=== PATIENT | female | born 1985 | race African-American/Black ===

== ENCOUNTER 2016-11-17 21:44 | Emergency (ER) | payer MEDICAID ==
[2016-11-17 21:54] VITALS: BP 104/71
[2016-11-17] MEDS ORDERED: IBUPROFEN 800 MG TABLET PO ONE (21:55)
--- NOTE | 2016-11-17 21:57 | ER Document Report ---
ED Medical Screen (RME) - General Stated Complaint: HAND INJURY Notes: Patient burned palm of right hand tonight on burner she was checking to see if it was hot. I have greeted and performed a rapid initial assessment of this patient. A comprehensive ED assessment and evaluation of the patient, analysis of test results and completion of the medical decision making process will be conducted by additional ED providers. TRAVEL OUTSIDE OF THE [place] IN LAST 30 DAYS: No - Related Data Allergies/Adverse Reactions: No Known Allergies Allergy (Unverified 02/15/16 11:22) Past Medical History - Past Medical History Cardiac Medical History: Reports: Hx Heart Murmur Psychiatric Medical History: Reports: Hx Depression Past Surgical History: Reports: Hx Section - 3, Hx Oral Surgery - Immunizations Immunizations up to date: No Hx Diphtheria, Pertussis, Tetanus Vaccination: No Physical Exam - Skin Notes: Mild erythema to Palm, no blisters noted.
== END 2016-11-17 22:44 | disposition left against medical advice (07) ==
LOC: ER 21:44
DX: Z53.9 Procedure and treatment not carried out, unspecified reason (principal); S69.91XA Unspecified injury of right wrist, hand and finger(s), initial encounter; X58.XXXA Exposure to other specified factors, initial encounter
CPT/HCPCS: 99281; J3490

== ENCOUNTER 2017-01-04 20:24 | Emergency (ER) | payer MEDICAID ==
[2017-01-04] MEDS ORDERED: DIPHENHYDRAMINE HCL 50 MG/ML VIAL IM ONE (22:17)
[2017-01-04] MEDS ORDERED: KETOROLAC TROMETHAMINE 60 MG/2 ML SDV IM ONE (22:17)
[2017-01-04] MEDS ORDERED: METOCLOPRAMIDE HCL INJ/PF 10 MG/2 ML SDV IM ONE (22:17)
--- NOTE | 2017-01-04 22:57 | ER Document Report ---
ED Headache - General Chief Complaint: Headache <24 hrs old Stated Complaint: HEADACHE Time Seen by Provider: 01/04/17 22:13 Notes: The patient is a 31-year-old female, past medical history migraines, presents with her usual headache that is frontal and radiating to her back. She also had some nausea and vomited once earlier today. She started Fioricet by her primary care physician yesterday and she took her first dose at 1900 today. She also received 8 mg Zofran on arrival to the ER. She is not having much relief of her headache. Her headache is similar to prior headaches. She is on her period currently. She denies neck stiffness, fevers, blurry vision, focal weakness, numbness, tingling, abdominal pain, chest pain, shortness of breath or head injury. TRAVEL OUTSIDE OF THE [place] IN LAST 30 DAYS: No - Related Data Allergies/Adverse Reactions: No Known Allergies Allergy (Verified 01/04/17 20:54) Home Medications: Current Home Medications Butalb/Acetaminophen/Caffeine [Fioricet (50-325-40 mg) Tablet] 1 tab PO Q4HP PRN 01/04/17 [History] Cholecalciferol (Vitamin D3) [Vitamin D3] 1 cap PO DAILY 01/04/17 [History] Cyclobenzaprine HCl 1 tab PO PRN PRN 01/04/17 [History] Past Medical History - General Information source: Patient - Social History Smoking Status: Unknown if Ever Smoked Family History: CAD, CVA, DM, Hyperlipidemia, Hypertension, Malignancy, Thyroid Disfunction Patient has suicidal ideation: No Patient has homicidal ideation: No - Past Medical History Cardiac Medical History: Reports: Hx Heart Murmur Renal/ Medical History: Denies: Hx Peritoneal Dialysis Psychiatric Medical History: Reports: Hx Depression Past Surgical History: Reports: Hx Section - 3, Hx Oral Surgery - Immunizations Immunizations up to date: No Hx Diphtheria, Pertussis, Tetanus Vaccination: No Review of Systems - Review of Systems Notes: REVIEW OF SYSTEMS: CONSTITUTIONAL: -fevers, -chills EENT: -eye pain, -difficulty swallowing, -nasal congestion CARDIOVASCULAR:-chest pain, -syncope. RESPIRATORY: -cough, -SOB GASTROINTESTINAL: -abdominal pain, - nausea, -vomiting, -diarrhea GENITOURINARY: -dysuria, -hematuria MUSCULOSKELETAL: -back pain, -neck pain SKIN: -rash or skin lesions. HEMATOLOGIC: -easy bruising or bleeding. LYMPHATIC: -swollen, enlarged glands. NEUROLOGICAL: -altered mental status or loss of consciousness, +headache, - neurologic symptoms PSYCHIATRIC: -anxiety, -depression. ALL OTHER SYSTEMS REVIEWED AND NEGATIVE. Physical Exam - Vital signs Vitals: Temp Pulse Resp BP Pulse Ox 98.2 F 88 18 110/65 100 01/04/17 20:58 01/04/17 20:58 01/04/17 20:58 01/04/17 20:58 01/04/17 20:58 - Notes Notes: PHYSICAL EXAMINATION: GENERAL: Well-appearing, well-nourished and in no acute distress. HEAD: Atraumatic, normocephalic. EYES: Pupils equal round and reactive to light, extraocular movements intact, sclera anicteric, conjunctiva are normal. ENT: nares patent, oropharynx clear without exudates. Moist mucous membranes. NECK: Normal range of motion, supple without lymphadenopathy LUNGS: Breath sounds clear to auscultation bilaterally and equal. No wheezes rales or rhonchi. HEART: Regular rate and rhythm without murmurs ABDOMEN: Soft, nontender, normoactive bowel sounds. No guarding, no rebound. No masses appreciated. EXTREMITIES: Normal range of motion, no pitting or edema. No cyanosis. NEUROLOGICAL: Cranial nerves grossly intact. Normal speech, normal gait. Normal sensory, motor, and reflex exams. PSYCH: Normal mood, normal affect. SKIN: Warm, Dry, normal turgor, no rashes or lesions noted. Course - Re-evaluation Re-evalutation: Patient's headache is exactly the same as her prior headaches. Do not suspect meningitis, ICH or SAH at this time. She is on her period currently and has not had a recent . After headache cocktail, patient feels much better. Told her to continue anti-inflammatories and Fioricet as needed with follow-up at her primary care physician. Also provided her with referral to neurologist. - Vital Signs Vital signs: Temp Pulse Resp BP Pulse Ox 98.2 F 88 18 110/65 100 01/04/17 20:58 01/04/17 20:58 01/04/17 20:58 01/04/17 20:58 01/04/17 20:58 Discharge - Discharge Clinical Impression: Headache Qualifiers: Headache type: unspecified Headache chronicity pattern: chronic headache Intractability: not intractable Qualified Code(s): R51 - Headache Condition: Good Disposition: HOME, SELF-CARE Additional Instructions: HEADACHE: The physician does not feel that the headache you are experiencing has a serious underlying cause. Most headaches are due to emotional stress, with resultant muscle tension (tension headache). Occasionally, headaches are secondary to changes in the blood vessels of the scalp (vascular headache and migraine headache). Sometimes, a headache is the first symptom of another developing illness, such as a viral infection. You have no evidence of stroke, bleeding, meningitis, or other serious cause of your headache. The treatment of headaches varies with the severity and cause of the pain. Not all headaches need pain shots. In fact, there is evidence that using narcotics for headaches may make them worse in the long run. The physician will determine the therapy that's in your best interest. If you develop a fever, if the headache is different from any you've previously experienced, or if the headache progressively worsens, then call your physician at once or go to the emergency room. REGLAN (METOCLOPRAMIDE): Reglan has been prescribed. This medicine affects the stomach and intestines. It can be used to treat nausea and vomiting, to prevent reflux of stomach acid up into the esophagus, or to increase the contractions of the stomach and intestines. It is often prescribed for esophagitis, and for paralysis of the stomach in diabetics. Reglan can cause either mild restlessness or drowsiness. You should contact the doctor at once if you become extremely restless, anxious, or cannot sleep, or if you develop uncontrollable motions of the lips, tongue, or jaw. Do not take alcohol with this medicine. Do not drive or operate machinery until you have been taking this medicine long enough to know how it affects you. Call the doctor if you develop abdominal pains, lightheadedness, black stool, or blood in the stool or vomitus. USE OF DIPHENHYDRAMINE: Diphenhydramine (Benadryl) is an antihistamine and has been recommended to help treat your headache and to prevent side effects of other medications used to treat headaches. The medication can be repeated four times daily. Age Elixir (12.5 mg/tsp) 25 mg pill adult 1-2 tabs Antihistamines may cause drowsiness, especially with the first dose. Do not operate machinery or drive while under the effects of the medication. Do not combine the medication with alcohol, or with any other medication without talking to your doctor. ANTINAUSEA MEDICATION: You have been given a medication to suppress nausea and vomiting. This type of medication can be given as a shot, pill, or suppository. It will usually last for many hours. Pills and shots usually last six to eight hours, suppositories last about 12 hours. For the typical illness, only one or two doses of the medication may be necessary. Mild lightheadedness may occur. This type of medicine can cause drowsiness. Do not drive or operate dangerous machinery while under its influence. Do not mix with alcohol. See your doctor at once if you have muscle spasms or tightness, or uncontrollable motions (particularly of the neck, mouth, or jaw). Persistent vomiting or severe lightheadedness should also be evaluated by the physician. TORADOL INJECTION: You have been given an injection of ketorolac tromethamine (Toradol). This is an excellent, safe drug for pain control. It also has potent antiinflammatory action. You should have significant pain relief within about one hour. Toradol is not addicting and is non-sedating. It does not interfere with driving or work. Call or return if you develop itching, hives, shortness of breath, or rash. FOLLOW-UP CARE: If you have been referred to a physician for follow-up care, call the physician s office for an appointment as you were instructed or within the next two days. If you experience worsening or a significant change in your symptoms, notify the physician immediately or return to the Emergency Department at any time for re-evaluation. Referrals: RAYMUNDO NAVARRO MD [ACTIVE STAFF] - Follow up as needed
[2017-01-05 01:18] VITALS: BP 109/62
== END 2017-01-05 01:17 | disposition home or self-care (01) ==
LOC: ER 20:24
DX: R51 Headache (principal); M54.9 Dorsalgia, unspecified; Z79.899 Other long term (current) drug therapy
CPT/HCPCS: 99283; 96372; J1200; J1885; J2765

== ENCOUNTER 2017-01-30 19:44 | Emergency (ER) | payer MEDICAID ==
[2017-01-30 20:38] LABS: APPEARANCE,URINE CLEAR; BILIRUBIN,URINE NEGATIVE (NEGATIVE); GLUCOSE, URINE NEGATIVE (NEGATIVE); KETONES,URINE TRACE mg/dL (NEGATIVE); LEUKOCYTE ESTERASE,URINE NEGATIVE (NEGATIVE); NITRITE,URINE NEGATIVE (NEGATIVE); PROTEIN,URINE NEGATIVE (NEGATIVE); URINE SPECIFIC GRAVITY 1.021
[2017-01-30 22:14] LABS: ABSOLUTE EOSINOPHILS # (AUTO) 0.2 10^3/uL (0.0-0.6); ABSOLUTE LYMPHOCYTES (AUTO) 3.4 10^3/uL (0.5-4.7); ABSOLUTE NEUT (AUTO) 6.2 10^3/uL (1.7-8.2); BASOPHILS % (AUTO) 0.3 % (0-2); EOSINOPHILS % (AUTO) 1.9 % (0-6); HEMATOCRIT 36.4 % (36.0-47.0); HEMOGLOBIN 11.8 g/dL (12.0-15.5); LYMPHOCYTES % (AUTO) 31.6 % (13-45); MEAN CORPUSCULAR HEMOGLOBIN 26.2 pg (27.0-33.4); MEAN CORPUSCULAR HGB CONC 32.4 g/dL (32.0-36.0); MEAN CORPUSCULAR VOLUME 81 fl (80-97); MONOCYTES % (AUTO) 8.9 % (3-13); RED BLOOD COUNT 4.52 10^6/uL (3.72-5.28); RED CELL DISTRIBUTION WIDTH 13.7 % (11.5-14.0); SEGMENTED NEUTROPHILS % (AUTO) 57.3 % (42-78); WHITE BLOOD COUNT 10.9 10^3/uL (4.0-10.5)
[2017-01-30 22:37] LABS: ALANINE AMINOTRANSFERASE 22 U/L (9-52); ALBUMIN 3.3 g/dL (3.5-5.0); ALKALINE PHOSPHATASE 50 U/L (38-126); ANION GAP 7 (5-19); ASPARTATE AMINO TRANSFERASE 15 U/L (14-36); BILIRUBIN,DIRECT 0.2 mg/dL (0.0-0.4); BILIRUBIN,TOTAL 0.3 mg/dL (0.2-1.3); BLOOD UREA NITROGEN 9 mg/dL (7-20); CALCIUM 9.2 mg/dL (8.4-10.2); CARBON DIOXIDE 25 mmol/L (22-30); CHLORIDE 107 mmol/L (98-107); CREATININE RESULT 0.68 mg/dL (0.52-1.25); GLUCOSE 84 mg/dL (75-110); LIPASE 69.4 U/L (23-300); POTASSIUM 4.1 mmol/L (3.6-5.0); SODIUM 139.1 mmol/L (137-145)
[2017-01-31] MEDS ORDERED: ONDANSETRON ODT 4 MG TAB (6 TAB/DSPK) PO PRN (00:51)
--- NOTE | 2017-01-31 00:52 | ER Document Report ---
ED General - General Chief Complaint: Nausea/Vomiting Stated Complaint: VOMITING Time Seen by Provider: 01/31/17 00:13 Notes: Patient is a 31-year-old female who presents with 2 days of vomiting. Patient states she is able to tolerate oral intake but has noticed vomiting is particularly worse in the morning. States that she has not had her menstrual cycle and almost 7 weeks. She is concerned that she may be . She has not noted that anything seems to improve or worsen or vomiting. States she has had similar symptoms in the past she has been . She has not seen a primary care doctor regarding today's concerns. Denies any abdominal pain, dysuria, vaginal bleeding or discharge. TRAVEL OUTSIDE OF THE [place] IN LAST 30 DAYS: No - Related Data Allergies/Adverse Reactions: No Known Allergies Allergy (Verified 01/04/17 20:54) Past Medical History - General Information source: Patient - Social History Smoking Status: Never Smoker Frequency of alcohol use: None Drug Abuse: None Lives with: Spouse/Significant other Family History: CAD, CVA, DM, Hyperlipidemia, Hypertension, Malignancy, Thyroid Disfunction Patient has suicidal ideation: No Patient has homicidal ideation: No - Past Medical History Cardiac Medical History: Reports: Hx Heart Murmur Renal/ Medical History: Denies: Hx Peritoneal Dialysis Psychiatric Medical History: Reports: Hx Depression Past Surgical History: Reports: Hx Section - 3, Hx Oral Surgery - Immunizations Immunizations up to date: No Hx Diphtheria, Pertussis, Tetanus Vaccination: No Review of Systems - Review of Systems Notes: Constitutional: Negative for fever. HENT: Negative for sore throat. Eyes: Negative for visual changes. Cardiovascular: Negative for chest pain. Respiratory: Negative for shortness of breath. Gastrointestinal: Negative for abdominal pain, positive for nausea and vomiting Genitourinary: Negative for dysuria. Musculoskeletal: Negative for back pain. Skin: Negative for rash. Neurological: Negative for headaches, weakness or numbness. 10 point ROS negative except as marked above and in HPI. Physical Exam - Vital signs Vitals: Temp Pulse Resp BP Pulse Ox 98 F 75 16 117/64 100 01/30/17 20:17 01/30/17 20:17 01/30/17 20:17 01/30/17 20:17 01/30/17 20:17 Interpretation: Normal Notes: PHYSICAL EXAMINATION: GENERAL: Well-appearing, well-nourished and in no acute distress. HEAD: Atraumatic, normocephalic. EYES: Pupils equal round and reactive to light, extraocular movements intact, sclera anicteric, conjunctiva are normal. ENT: nares patent, oropharynx clear without exudates. Moist mucous membranes. NECK: Normal range of motion, supple without lymphadenopathy LUNGS: Breath sounds clear to auscultation bilaterally and equal. No wheezes rales or rhonchi. HEART: Regular rate and rhythm without murmurs ABDOMEN: Soft, nontender, normoactive bowel sounds. No guarding, no rebound. No masses appreciated. EXTREMITIES: Normal range of motion, no pitting or edema. No cyanosis. NEUROLOGICAL: No focal neurological deficits. Moves all extremities spontaneously and on command. PSYCH: Normal mood, normal affect. SKIN: Warm, Dry, normal turgor, no rashes or lesions noted. Course - Re-evaluation Re-evalutation: 01/31/17 00:50 Patient presents with vomiting during . Vitals at time of arrival unremarkable without tachycardia or hypotension. Laboratories reveal a normal creatinine and no evidence of significant dehydration. Patient was able to tolerate oral intake here in the emergency department. HCG is below the zone of margination there is no indication for an ultrasound in the acute setting at this time patient has no abdominal pain, vaginal bleeding or discharge. Based on abdominal exam, vitals and history I do not suspect an acute appendicitis, cholestasis of , acute cholecystitis, pancreatitis, or bowel obstruction. Patient will be started on a combination of doxylamine and vitamin B6. At this time will discharge with return precautions and follow-up recommendations. Verbal discharge instructions given a the bedside and opportunity for questions given. Medication warnings reviewed. Patient is in agreement with this plan and has verbalized understanding of return precautions and the need for primary care follow-up in the next 24-72 hours. - Vital Signs Vital signs: Temp Pulse Resp BP Pulse Ox 98 F 74 17 120/68 99 01/30/17 20:17 01/31/17 01:18 01/31/17 01:18 01/31/17 01:18 01/31/17 01:18 - Laboratory Result Diagrams: 01/30/17 21:45 01/30/17 21:45 Laboratory results interpreted by me: 01/30/17 01/30/17 01/30/17 20:12 21:45 21:45 WBC 10.9 H Hgb 11.8 L MCH 26.2 L Total Protein 6.0 L Albumin 3.3 L Beta HCG, Quant 1387.70 H Urine Ketones TRACE H Urine Urobilinogen 4.0 H Urine HCG, Qual POSITIVE H Discharge - Discharge Clinical Impression: Vomiting during Condition: Good Disposition: HOME, SELF-CARE Additional Instructions: You have been seen for vomiting during . You should continue to drink plenty of water and consider taking a solution such as Pedialyte if your having difficulty eating food. Please return if you become unable to drink any fluids for more than 12 hours, urinate less than twice a day, pass out, or have any other symptoms that are concerning to you. For nausea and vomiting during I recomment: Start with 10-12.5 mg of pyridoxine (vitamin B6) three times a day for 2 days. If not fully effective, Increase to 12.5 mg of pyridoxine four times a day for 2 days. If not fully effective, Increase to 25 mg of pyridoxine three times a day for 2 days. If not fully effective, Continue 25 mg pyridoxine 3 times a day, and add 12.5 mg of doxylamine before bedtime each day for 2 days. If not fully effective, Continue 25 mg pyridoxine 3 times a day, and take 12.5 mg of doxylamine twice a day. If not fully effective, Continue 25 mg pyridoxine 3 times a day, and take 12.5 mg of doxylamine three times a day. If not fully effective, Continue 25 mg pyridoxine 3 times a day, and 12.5 mg of doxylamine 3 times a day , while adding Emetrol, one to two tablespoons (15-30 cc) taken once or twice a day as needed. (Emetrol is an [id number] mixture of sugar syrups and phosphoric acid [phosphorylated carbohydrate solution]) that acts by soothing the actual wall of the gastrointestinal tract). If not fully effective, Consult with your doctor. Forms: Return to Work Referrals: VANDANA RODRIGUES, [employer] [Primary Care Provider] - Follow up as needed
[2017-01-31 01:19] VITALS: BP 120/68
== END 2017-01-31 01:19 | disposition home or self-care (01) ==
LOC: ER 19:44
DX: R11.2 Nausea with vomiting, unspecified (principal); Z3A.01 Less than 8 weeks gestation of pregnancy
CPT/HCPCS: 36415; 80053; 81001; 81025; 83690; 84702; 85025; 99283

== ENCOUNTER 2017-02-21 04:29 | Emergency (ER) | payer MEDICAID ==
[2017-02-21 04:36] VITALS: BP 111/94
[2017-02-21] MEDS ORDERED: BUPIVACAINE HCL 0.5 % INJ/PF 30 ML SDV INJ ONE (04:51)
[2017-02-21] MEDS ORDERED: LIDOCAINE 2% INJ (20 MG/ML) 20 ML MDV INJ ONE (04:51)
--- NOTE | 2017-02-21 04:55 | ER Document Report ---
ED General - General Chief Complaint: Toothache Stated Complaint: TOOTHACHE Time Seen by Provider: 02/21/17 04:45 Notes: Patient is a pleasant 51-year-old female presents with complaint of a toothache. At the pain for over a month. She has seen oral surgeon. They prescribed her penicillin which she is taking. I informed her that they would not pull her tooth until March 26 because they want to wait until she completed her first trimester . Want to wait until her front edger clears her. Patient says she was told that if she came to the ER that we might be able to do a dental block to take away the pain. She denies any facial swelling. No fevers. She is on Tylenol with codeine for the pain but says that she still has pain despite taking this medication. TRAVEL OUTSIDE OF THE [place] IN LAST 30 DAYS: No - Related Data Allergies/Adverse Reactions: No Known Allergies Allergy (Verified 01/04/17 20:54) Past Medical History - Social History Smoking Status: Unknown if Ever Smoked Frequency of alcohol use: None Drug Abuse: None Family History: CAD, CVA, DM, Hyperlipidemia, Hypertension, Malignancy, Thyroid Disfunction Patient has suicidal ideation: No Patient has homicidal ideation: No - Past Medical History Cardiac Medical History: Reports: Hx Heart Murmur Renal/ Medical History: Denies: Hx Peritoneal Dialysis Psychiatric Medical History: Reports: Hx Depression Past Surgical History: Reports: Hx Section - 3, Hx Oral Surgery - Immunizations Immunizations up to date: No Hx Diphtheria, Pertussis, Tetanus Vaccination: No Review of Systems - Review of Systems Notes: My Normal Review Basic REVIEW OF SYSTEMS: CONSTITUTIONAL : Denies fever, chills, or sweats. Denies recent illness. EENT: Dental pain. RESPIRATORY: Denies cough, cold, or chest congestion. Denies shortness of breath, difficulty breathing, or wheezing. FEMALE GENITOURINARY: Denies vaginal bleeding, abnormal or irregular periods. LMP: currently . NEUROLOGICAL: Denies altered mental status or loss of consciousness. Denies headache. Denies weakness or paralysis or loss of use of either side. Denies problems with gait or speech. Denies sensory or motor loss. ALL OTHER SYSTEMS REVIEWED AND NEGATIVE. Physical Exam - Vital signs Vitals: Temp Pulse Resp BP Pulse Ox 98.6 F 76 18 111/94 H 100 02/21/17 04:02/21/17 04:02/21/17 04:02/21/17 04:02/21/17 04:33 - Notes Notes: General Appearance: Well nourished, alert, cooperative, no acute distress, alert obvious discomfort. Vitals: reviewed, See vital signs table. Head: no swelling or tenderness to the head Eyes: PERRL, EOMI, Conjuctiva clear Mouth: Patient has a fractured right lower molar. No gingival swelling or inflammation. Throat: No tonsillar inflammation, No airway obstruction, No lymphadenopathy Skin: warm, dry, appropriate color, no rash Neuro: speech clear, oriented x 3, normal affect, responds appropriately to questions. Course - Vital Signs Vital signs: Temp Pulse Resp BP Pulse Ox 98.6 F 76 18 111/94 H 100 02/21/17 04:02/21/17 04:02/21/17 04:02/21/17 04:33 02/21/17 04:33 - Transfer of Care Notes: 02/21/17 05:23 Patient is already on penicillin as well as Tylenol with codeine. She is . I do not feel further narcotic pain medicine would be appropriate at this time. She does have a appointment to have the teeth potentially pulled at the end of February. I informed her that she should follow-up with her OB doctor to get cleared so that she can have her tooth pulled. I did inform her that a dental block for the last 6-8 hours. Patient understands this and still wanted forms. I did perform a inferior alveolar dental block. I informed her that she can also try [id number] dental paste over the tooth being that it is chipped. This may help prevent irrigating to the nerve and help her pain. Patient encouraged to return to ER immediately if she has any facial swelling, fevers, or if she has any further concerns. Patient agrees with plan and will be discharged home. Dictation of this chart was performed using voice recognition software; therefore, there may be some unintended grammatical errors. Procedures - Additional Procedures dental block Notes: 02/21/17 05:21 I performed a inferior alveolar block on the right sided. I injected approximately 4mls of a mixture of bupivicaine 0.5% and lidocaine 2% just anterior and medial to the mandibular angle. Patient tolerated procedure well without complications. Discharge - Discharge Clinical Impression: Pain, dental Condition: Good Disposition: HOME, SELF-CARE Additional Instructions: Please continue to take your antibiotics. Please return to the ER immediately if you have any difficulty breathing, facial swelling, fevers, throat swelling, or if you feel unwell. Please try to apply over the counter dental cement to seal the tooth so that air does not hit the nerve in the tooth. Forms: Return to Work
== END 2017-02-21 05:22 | disposition home or self-care (01) ==
LOC: ER 04:29
PROC: 3E0T3BZ Introduction of Anesthetic Agent into Peripheral Nerves and Plexi, Percutaneous Approach (ICD-10-PCS; principal; 2017-02-21)
DX: K08.89 Other specified disorders of teeth and supporting structures (principal)
CPT/HCPCS: 99282; 64400; J3490

== ENCOUNTER 2017-09-05 12:59 | Outpatient (CLI) | payer MEDICAID ==
[2017-09-05] MEDS ORDERED: RINGERS SOLUTION,LACTATED 1,000 ML IV PRN (14:53)
--- NOTE | 2017-09-05 16:53 | RADIOLOGY REPORT (SQ) ---
EXAM DESCRIPTION: U/S PROFILE W/O STRESS COMPLETED DATE/TIME: 09/05/2017 4:44 pm REASON FOR STUDY: non reactive NST COMPARISON: None. TECHNIQUE: Limited bell-scale realtime and static images of the fetus to measure specified parameter s. LIMITATIONS: None. FINDINGS: HEART RATE: 135 beats per minute. YUE: 12.7 cm. BREATHING MOVEMENT: 2 points. MOVEMENT: 2 points. POSTURE AND TONE: 2 points. QUALITATIVE YUE: 2 points. OTHER: No other significant finding. IMPRESSION: BIOPHYSICAL PROFILE: 04/03. Trimester of : Third - 28 weeks to delivery COMMENT: BREATHING MOVEMENTS: 2 POINTS: PRESENT 0 POINTS: ABSENT MOTION: 2 POINTS: PRESENT 0 POINTS: ABSENT TONE: 2 POINTS: PRESENT 0 POINTS: ABSENT AMNIOTIC FLUID VOLUME: 2 POINTS: LARGEST POCKET GREATER THAN 2 CM DEPTH. 0 POINTS: NO POCKET OF 2 CM. TECHNICAL DOCUMENTATION: JOB ID: [id number] [employer]- All Rights Reserved
[2017-09-05 16:57] LABS: AMORPHOUS SEDIMENT,URINE TRACE /HPF; APPEARANCE,URINE CLEAR; BILIRUBIN,URINE NEGATIVE (NEGATIVE); COLOR,URINE STRAW; GLUCOSE, URINE 50 mg/dL (NEGATIVE); KETONES,URINE NEGATIVE (NEGATIVE); LEUKOCYTE ESTERASE,URINE NEGATIVE (NEGATIVE); NITRITE,URINE NEGATIVE (NEGATIVE); PROTEIN,URINE NEGATIVE (NEGATIVE); URINE SPECIFIC GRAVITY 1.009; UROBILINOGEN,URINE NEGATIVE mg/dL (<2.0)
[2017-09-05 17:07] LABS: URINE AMPHETAMINES SCREEN NEGATIVE; URINE BARBITURATES SCREEN NEGATIVE; URINE BENZODIAZEPINES SCREEN NEGATIVE; URINE COCAINE SCREEN NEGATIVE; URINE MARIJUANA (THC) SCREEN NEGATIVE; URINE METHADONE SCREEN NEGATIVE; URINE PHENCYCLIDINE SCREEN NEGATIVE
== END 2017-09-05 17:10 | disposition home or self-care (01) ==
LOC: LC 12:59
PROVIDERS: ATTEND Student in an Organized Health Care Education/Training Program
PROC: 4A1HXCZ Monitoring of Products of Conception, Cardiac Rate, External Approach (ICD-10-PCS; principal; 2017-09-05)
DX: O24.419 Gestational diabetes mellitus in pregnancy, unspecified control (principal); O47.03 False labor before 37 completed weeks of gestation, third trimester; Z3A.35 35 weeks gestation of pregnancy
CPT/HCPCS: 59025; 76819; 80307; 81001; 82962; 94760

== ENCOUNTER 2017-09-19 10:52 | Outpatient (CLI) | payer MEDICAID ==
--- NOTE | 2017-09-19 10:58 | Non Stress Test Report ---
Non Stress Test Datetime Report Generated by CPN: 09/19/2017 10:58 DEMOGRAPHIC EGA NST: 35.2 INDICATION Indication for Study: Ordered by Provider MONITORING Monitor Explained: Monitor Explained; Test Explained; Patient Verbalized Understanding Time on Monitor: 09/05/2017 16:25 Time off Monitor: 09/05/2017 17:02 NST Duration: 37 NST INTERVENTIONS NST Interventions: PO Hydration; For Biophysical Profile Physician Notified NST: Dr. Olmstead BABY A: [id number] BABY A Movement : Present Contraction Frequency : irregular FHR Baseline : 135 Accelerations : 15X15 Decelerations : None Variability : Moderate 6-25bpm NST Review: Meets Criteria for Reactive NST NST Review and Verified By : Alejandra Gregory RNC NST Results: Reactive NST REPORT Report Trigger: Send Report
--- NOTE | 2017-09-19 11:25 | Non Stress Test Report ---
Non Stress Test Datetime Report Generated by CPN: 09/19/2017 11:25 DEMOGRAPHIC EGA NST: 37.2 INDICATION Indication for Study: Ordered by Provider Indication for Study (NST) Other: NST MONITORING Monitor Explained: Monitor Explained; Test Explained; Patient Verbalized Understanding Time on Monitor: 09/19/2017 11:01 NST INTERVENTIONS NST Interventions: None Physician Notified NST: Olmstead BABY A Movement : Present Contraction Frequency : 0 Accelerations : 15X15 Decelerations : None Variability : Moderate 6-25bpm NST Review: Meets Criteria for Reactive NST NST Review and Verified By : BL JANETND, RN NST Results: Reactive NST REPORT Report Trigger: Send Report
== END 2017-09-19 11:24 | disposition home or self-care (01) ==
LOC: LC 10:52
PROVIDERS: ATTEND Student in an Organized Health Care Education/Training Program
PROC: 4A1HXCZ Monitoring of Products of Conception, Cardiac Rate, External Approach (ICD-10-PCS; principal; 2017-09-19)
DX: Z34.93 Encounter for supervision of normal pregnancy, unspecified, third trimester (principal)
CPT/HCPCS: 59025

== ENCOUNTER 2017-10-01 04:35 | Inpatient (IN) | payer MEDICAID ==
[2017-09-28 11:16] LABS: ABSOLUTE EOSINOPHILS # (AUTO) 0.1 10^3/uL (0.0-0.6); ABSOLUTE LYMPHOCYTES (AUTO) 1.8 10^3/uL (0.5-4.7); ABSOLUTE MONOCYTES (AUTO) 1.3 10^3/uL (0.1-1.4); ABSOLUTE NEUT (AUTO) 6.9 10^3/uL (1.7-8.2); BASOPHILS % (AUTO) 0.3 % (0-2); EOSINOPHILS % (AUTO) 1.2 % (0-6); HEMATOCRIT 31.3 % (36.0-47.0); HEMOGLOBIN 10.6 g/dL (12.0-15.5); LYMPHOCYTES % (AUTO) 18.1 % (13-45); MEAN CORPUSCULAR HEMOGLOBIN 25.1 pg (27.0-33.4); MEAN CORPUSCULAR HGB CONC 33.7 g/dL (32.0-36.0); MEAN CORPUSCULAR VOLUME 75 fl (80-97); MONOCYTES % (AUTO) 12.4 % (3-13); PLATELET COUNT 221 10^3/uL (150-450); RED CELL DISTRIBUTION WIDTH 16.1 % (11.5-14.0); TOTAL CELLS COUNTED % (AUTO) 100 %; WHITE BLOOD COUNT 10.1 10^3/uL (4.0-10.5)
[2017-09-28 11:23] LABS: APPEARANCE,URINE CLEAR; BILIRUBIN,URINE NEGATIVE (NEGATIVE); COLOR,URINE YELLOW; GLUCOSE, URINE 50 mg/dL (NEGATIVE); KETONES,URINE NEGATIVE (NEGATIVE); LEUKOCYTE ESTERASE,URINE NEGATIVE (NEGATIVE); NITRITE,URINE NEGATIVE (NEGATIVE); PROTEIN,URINE 30 mg/dL (NEGATIVE); UROBILINOGEN,URINE NEGATIVE mg/dL (<2.0)
[2017-09-28 11:44] LABS: URINE AMPHETAMINES SCREEN NEGATIVE; URINE BARBITURATES SCREEN NEGATIVE; URINE BENZODIAZEPINES SCREEN NEGATIVE; URINE COCAINE SCREEN NEGATIVE; URINE MARIJUANA (THC) SCREEN NEGATIVE; URINE METHADONE SCREEN NEGATIVE; URINE PHENCYCLIDINE SCREEN NEGATIVE
[2017-10-01] MEDS ORDERED: CEFAZOLIN 2 GM/D5W RTU 2 GM/50 ML RTUPB IV PRN (05:00)
[2017-10-01] MEDS ORDERED: RINGERS SOLUTION,LACTATED 1,000 ML IV PRN (05:00)
[2017-10-01] MEDS ORDERED: LIDOCAINE 0.5% INJ-PF (5 MG/ML) 50 ML SDV SUBCUT PRN (05:00)
[2017-10-01] MEDS: LACTATED RINGERS 1000 ML IV PRN ×2 (06:03→10:11)
[2017-10-01] MEDS ORDERED: OXYTOCIN 10 UNIT/ML VIAL ONE (07:21)
[2017-10-01] MEDS ORDERED: OXYTOCIN/NORMAL SALINE 20 UNIT/1,000 ML RTUINJ ONE (07:21)
[2017-10-01] MEDS ORDERED: EPHEDRINE SULFATE INJ 50 MG/1 ML AMPULE ONE (07:22)
[2017-10-01] MEDS ORDERED: FENTANYL CITRATE INJ/PF 100 MCG/2 ML AMPUL ONE (07:22)
[2017-10-01] MEDS ORDERED: MIDAZOLAM 2 MG/2 ML INJ ONE (07:22)
[2017-10-01] MEDS ORDERED: MEPERIDINE HCL/PF INJ 25 MG/1 ML DISP.SYRIN IV PRN (07:59)
[2017-10-01] MEDS ORDERED: FENTANYL CITRATE INJ/PF 100 MCG/2 ML AMPUL IV PRN ×3 (07:59)
[2017-10-01] MEDS ORDERED: DIPHENHYDRAMINE HCL 50 MG/ML VIAL IV PRN (07:59)
[2017-10-01] MEDS ORDERED: PROMETHAZINE HCL INJ 25 MG/1 ML VIAL IV PRN ×3 (07:59→08:51)
[2017-10-01] MEDS ORDERED: ONDANSETRON HCL INJ/PF 4 MG/2 ML SDV IV PRN (07:59)
[2017-10-01] MEDS ORDERED: ACETAMINOPHEN 100 ML IV PRN (08:51)
[2017-10-01] MEDS ORDERED: SIMETHICONE 80 MG TAB.CHEW PO PRN (08:51)
[2017-10-01] MEDS ORDERED: HYDROMORPHONE HCL INJ/PF 2 MG/ML AMPULE IV PRN (08:51)
[2017-10-01] MEDS ORDERED: MEASLES,MUMPS&RUBELLA VACC/PF 0.5 ML VIAL SUBCUT PRN (08:51)
[2017-10-01] MEDS ORDERED: OXYCODONE-ACETAMINOPHEN 5-325 MG TABLET PO PRN (08:51)
[2017-10-01] MEDS ORDERED: OXYTOCIN/NORMAL SALINE 20 UNIT/1,000 ML RTUINJ IV PRN (08:51)
[2017-10-01] MEDS ORDERED: DIPH/PERTUSS(ACELL)/TETANUS VAC/PF 0.5 ML SYR (>=10YO) IM PRN (08:51)
[2017-10-01] MEDS ORDERED: ACETAMINOPHEN 325 MG TABLET PO PRN (08:51)
[2017-10-01] MEDS ORDERED: ACETAMINOPHEN 100 ML IV ONE (08:52)
--- NOTE | 2017-10-01 08:59 | Operative Report ---
Operative Report DATE OF SURGERY: 10/01/17 PREOPERATIVE DIAGNOSIS: Repeat c section and tubal ligation to prevent risk for uterine rupture and permanent surgical sterilization. POSTOPERATIVE DIAGNOSIS: Same OPERATION: Repeat via low transverse uterine incision and tubal ligation with Filshie clips SURGEON: MACI MCGEE ANESTHESIA: Spinal TISSUE REMOVED OR ALTERED: Placenta COMPLICATIONS: None ESTIMATED BLOOD LOSS: 250 INTRAOPERATIVE FINDINGS: Normal female pelvis. Normal tubes and ovaries. Viable male Apgars 9/9, weight was 5 lbs. 14 oz. PROCEDURE: Patient was taken to the OR and placed in supine position after her spinal anesthesia. She is prepared and draped in sterile fashion. Waldron was placed for drainage of the bladder. Low transverse incision was made and carried down the level of the fascia. The fascial incision was made with knife and extended bilaterally with curved Warner scissors. The fascia was off the rectus muscles using sharp and blunt dissection. The rectus muscles are in the midline. The peritoneum was entered without incident. Bladder blade was placed in uterine segment was identified. A low transverse incision was made creating a bladder flap. Bladder blade was placed low transverse uterine incision was made with the hemostat and extended with fingertips. The lower uterine segment was very thin basically there is just a peritoneal window. The baby was delivered with some fundal pressure. Mouth and nose were suctioned free. The cord is doubly clamped and cut. Baby is passed off to the j2ee architect in attendance. The placenta was manually extracted with trailing membranes. The uterus was externalized wrapped in a moist lap sponge. Uterine contents wiped free. Uterus was closed with a running locking layer of 0 chromic suture using the second layer to imbricate the first completing a double layer closure of the uterus. The serosa was closed with a running 2-0 chromic stitch. The tubal ligation was performed by identifying both fallopian tubes by the fimbriated end and placing a Filshie clip across the mid isthmic portion bilaterally. The pelvis was irrigated and suctioned free of fluid the uterus was replaced in the abdomen. The abdominal wall peritoneum was closed with running 2-0 chromic stitch. Fascia was closed with a running 0 Vicryl in 2 segments. Mabel's layer was brought together with 0 plain gut stitch and the skin was closed with running subcuticular 4-0 undyed Vicryl stitch. The wound was dressed mother and baby did well.
[2017-10-01] MEDS: MORPHINE SULFATE 10 MG/ML INJ IV PRN ×2 (09:58→10:30)
[2017-10-01] MEDS ORDERED: MORPHINE SULFATE 10 MG/ML INJ ONE (09:58)
[2017-10-01] MEDS: KETOROLAC TROMETHAMINE INJ/PF 30 MG/1 ML SDV IV SCH ×2 (11:30→17:15)
[2017-10-01] MEDS: PRENATAL VITAMIN W DHA CAPSULE PO SCH (12:02)
[2017-10-01] MEDS: DOCUSATE SODIUM 100 MG CAPSULE PO SCH ×2 (12:02→17:14)
[2017-10-01] MEDS ORDERED: PHENYLEPHRINE HCL INJ/PF 10 MG/1 ML SDV ONE (14:16)
[2017-10-01] MEDS ORDERED: DEXAMETHASONE SOD PHOSPHATE INJ 4 MG/1 ML VIAL ONE (14:16)
[2017-10-01] MEDS ORDERED: METOCLOPRAMIDE HCL INJ/PF 10 MG/2 ML SDV ONE (14:16)
[2017-10-01] MEDS ORDERED: ONDANSETRON HCL INJ/PF 4 MG/2 ML SDV ONE (14:16)
[2017-10-01] MEDS ORDERED: KETOROLAC TROMETHAMINE 60 MG/2 ML SDV ONE (14:16)
[2017-10-01] MEDS: OXYCODONE-ACETAMINOPHEN 5-325 MG TABLET PO PRN (20:58)
[2017-10-02] MEDS: KETOROLAC TROMETHAMINE INJ/PF 30 MG/1 ML SDV IV SCH (01:13)
[2017-10-02] MEDS: OXYCODONE-ACETAMINOPHEN 5-325 MG TABLET PO PRN ×4 (01:14→20:30)
[2017-10-02 06:31] LABS: HEMATOCRIT 26.6 % (36.0-47.0); HEMOGLOBIN 8.8 g/dL (12.0-15.5); MEAN CORPUSCULAR HEMOGLOBIN 24.7 pg (27.0-33.4); MEAN CORPUSCULAR HGB CONC 32.9 g/dL (32.0-36.0); MEAN CORPUSCULAR VOLUME 75 fl (80-97); PLATELET COUNT 204 10^3/uL (150-450); RED BLOOD COUNT 3.54 10^6/uL (3.72-5.28); RED CELL DISTRIBUTION WIDTH 16.1 % (11.5-14.0); WHITE BLOOD COUNT 15.1 10^3/uL (4.0-10.5)
--- NOTE | 2017-10-02 09:05 | PDOC PROGRESS REPORT ---
Subjective-OB Progress Note for:: 10/02/17 Subjective: pt alert and stable no complaints Physical Exam (OB) Vital Signs: Temp Pulse Resp BP Pulse Ox 98.3 F 86 16 119/63 100 10/02/17 07:28 10/02/17 07:28 10/02/17 07:28 10/02/17 07:28 10/02/17 07:28 Intake & Output 10/01/17 10/02/17 10/03/17 06:59 06:59 06:59 Intake Total 2835 Output Total 2350 Balance 485 Weight 91.172 kg - Dressing Removed: No Incision: Dressing, Well Approximated Closure Type: Sutures - Bilateral Tubal Ligation Dressing Removed: No - honeycomb dressing present Site: Dressing - Lochia Lochia Amount: Moderate 25-50 ml Lochia Color: Rubra/Red - Abdomen Description: Tender, Soft, Round Hernia Present: Yes Bowel Sounds: Normoactive Flatus Presence: Present Stool: No Fundal Description: Firm, Midline Fundal Height: u/u - u/2 - Respiratory Breath sounds: Clear - continue routine post op care Objective-Diagnostic Laboratory: 10/02/17 06:16 10/02/17 06:16 WBC 15.1 H RBC 3.54 L Hgb 8.8 L Hct 26.6 L MCV 75 L MCH 24.7 L MCHC 32.9 RDW 16.1 H Plt Count 204
[2017-10-02] MEDS: DOCUSATE SODIUM 100 MG CAPSULE PO SCH ×2 (09:12→17:01)
[2017-10-02] MEDS: PRENATAL VITAMIN W DHA CAPSULE PO SCH (09:12)
[2017-10-02] MEDS: IBUPROFEN 800 MG TABLET PO SCH ×3 (11:07→23:03)
[2017-10-03] MEDS: OXYCODONE-ACETAMINOPHEN 5-325 MG TABLET PO PRN ×3 (01:04→16:51)
[2017-10-03] MEDS: IBUPROFEN 800 MG TABLET PO SCH ×3 (05:50→19:06)
[2017-10-03] MEDS: PRENATAL VITAMIN W DHA CAPSULE PO SCH (10:00)
[2017-10-03] MEDS ORDERED: ONDANSETRON 4 MG TAB.RAPDIS PO PRN (10:22)
[2017-10-03] MEDS: DOCUSATE SODIUM 100 MG CAPSULE PO SCH ×2 (10:30→19:05)
--- NOTE | 2017-10-03 11:22 | PDOC PROGRESS REPORT ---
Subjective-OB Progress Note for:: 10/03/17 Subjective: feeling pain at incision. complaining of nausea and vomiting Physical Exam (OB) Vital Signs: Temp Pulse Resp BP Pulse Ox 98.0 F 88 18 124/61 98 10/03/17 07:44 10/03/17 07:44 10/03/17 04:00 10/03/17 07:44 10/03/17 07:44 Intake & Output 10/02/17 10/03/17 10/04/17 06:59 06:59 06:59 Intake Total 2835 980 Output Total 2350 Balance 485 980 - Dressing Removed: No - honeycomb dressing Incision: Dressing Closure Type: Sutures - Bilateral Tubal Ligation Dressing Removed: No - honeycomb dressing Site: Dressing - Abdomen Description: Tender, Soft Hernia Present: No Bowel Sounds: Hyperactive Fundal Description: Firm, Midline Fundal Height: u/u - u/2 - Extremities Lower extremities: Mark's sign - neg Calf: Normal, Nontender Objective-Diagnostic Laboratory: 10/02/17 06:16 Assessment and Plan(PN) - Time Spent with Patient Time with patient: Less than 15 minutes Medications reviewed and adjusted accordingly: Yes - Disposition Anticipated Discharge: Home Within: within 24 hours - discussed plan of care with Dr Olmstead. will give clear liquids for today and anticipate discharge tomorrow
[2017-10-04] MEDS: IBUPROFEN 800 MG TABLET PO SCH ×3 (00:59→11:35)
[2017-10-04] MEDS: OXYCODONE-ACETAMINOPHEN 5-325 MG TABLET PO PRN ×2 (00:59→12:13)
[2017-10-04 09:10] VITALS: BP 128/75
--- NOTE | 2017-10-04 09:47 | PDOC PROGRESS REPORT ---
Subjective-OB Progress Note for:: 10/04/17 Subjective: Ready for discharge. Physical Exam (OB) Vital Signs: Temp Pulse Resp BP Pulse Ox 98.3 F 77 17 128/75 H 100 10/04/17 09:04 10/04/17 09:04 10/04/17 09:04 10/04/17 09:04 10/04/17 09:04 Intake & Output 10/03/17 10/04/17 10/05/17 06:59 06:59 06:59 Intake Total 980 480 Balance 980 480 - Dressing Removed: No Incision: Dressing, Well Approximated Closure Type: Sutures - Bilateral Tubal Ligation Dressing Removed: No - honeycomb dressing Site: Dressing - Lochia Lochia Amount: Scant < 10 ml Lochia Color: Rubra/Red - Abdomen Description: Soft, Round Hernia Present: No Bowel Sounds: Normoactive Flatus Presence: Present Stool: No Fundal Description: Firm, Midline Fundal Height: u/u - u/2 Objective-Diagnostic Laboratory: 10/02/17 06:16 Assessment and Plan(PN) - Time Spent with Patient Medications reviewed and adjusted accordingly: Yes - Disposition Anticipated Discharge: Home
--- NOTE | 2017-10-04 10:03 | PDOC DISCHARGE SUMMARY ---
Final Diagnosis Discharge Date: 10/04/17 - Final Diagnosis (1) Anemia due to acute blood loss Is this a current diagnosis for this admission?: Yes (2) delivery delivered Is this a current diagnosis for this admission?: Yes (3) Gestational diabetes Is this a current diagnosis for this admission?: Yes (4) S/P tubal ligation Is this a current diagnosis for this admission?: Yes Discharge Data - Discharge Medication Prescriptions: Oxycodone HCl/Acetaminophen [Percocet 5-325 mg Tablet] 1 tab PO Q4HP PRN #20 tablet PRN Reason: Docusate Sodium [Colace 100 mg Capsule] 100 mg PO BID #30 capsule Ferrous Sulfate 325 mg PO BID #60 tablet. Ibuprofen [Motrin 800 mg Tablet] 800 mg PO Q6 #30 tablet Home Medications: Vit/Iron Fum/Folic AC [ Tablet] 1 each PO DAILY 09/05/17 Docusate Sodium [Colace 100 mg Capsule] 100 mg PO BID #30 capsule 10/04/17 Ferrous Sulfate 325 mg PO BID #60 tablet. 10/04/17 Ibuprofen [Motrin 800 mg Tablet] 800 mg PO Q6 #30 tablet 10/04/17 Oxycodone HCl/Acetaminophen [Percocet 5-325 mg Tablet] 1 tab PO Q4HP PRN #20 tablet 10/04/17 Gestational Age: 39 wks Reason(s) for Admission: Ceasarean Section-Repeat, Tubal Ligation Procedures: Ultrasound Intrapartum Procedure(s): : Low Cervical, Transverse - Data Baby 1 Male at 1 minute: 9 at 5 minutes: 9 Weight: 2.675 kg Home with Mother: Yes Complications: No - Diagnosis Test Laboratory: Temp Pulse Resp BP Pulse Ox 98.3 F 77 17 128/75 H 100 10/04/17 09:04 10/04/17 09:04 10/04/17 09:04 10/04/17 09:04 10/04/17 09:04 09/28/17 09/28/17 10/02/17 10:35 10:45 06:16 RBC 4.20 3.54 L Hgb 10.6 L 8.8 L Hct 31.3 L 26.6 L Urine Opiates Screen NEGATIVE - Discharge information/Instructions Discharge Activity: Activity As Tolerated, Balance Activity w/Rest, No Driving, No Lifting Over 10 Pounds, No Lifting/Push/Pulling, Pelvic Rest, Slowly Increase Activity, No tub bath Discharge Diet: Regular Disposition: HOME, SELF-CARE Follow up with: [facility] in: 1, Weeks
[2017-10-04] MEDS: PRENATAL VITAMIN W DHA CAPSULE PO SCH (10:48)
[2017-10-04] MEDS: DOCUSATE SODIUM 100 MG CAPSULE PO SCH (10:48)
== END 2017-10-04 13:10 | disposition home or self-care (01) | DRG 765 ==
LOC: 2S 04:35
PROVIDERS: ADMIT Obstetrics & Gynecology; ATTEND Obstetrics & Gynecology
PROC: 0UL70CZ Occlusion of Bilateral Fallopian Tubes with Extraluminal Device, Open Approach (ICD-10-PCS; 2017-10-01)
PROC: 4A1HXCZ Monitoring of Products of Conception, Cardiac Rate, External Approach (ICD-10-PCS; 2017-10-01)
PROC: 10D00Z1 Extraction of Products of Conception, Low, Open Approach (ICD-10-PCS; principal; 2017-10-01 07:30)
DX: O34.211 Maternal care for low transverse scar from previous cesarean delivery (principal); D62 Acute posthemorrhagic anemia; O99.02 Anemia complicating childbirth; O24.429 Gestational diabetes mellitus in childbirth, unspecified control; O99.334 Smoking (tobacco) complicating childbirth; F17.210 Nicotine dependence, cigarettes, uncomplicated; Z30.2 Encounter for sterilization; Z3A.39 39 weeks gestation of pregnancy; Z37.0 Single live birth; Z82.49 Family history of ischemic heart disease and other diseases of the circulatory system; Z83.3 Family history of diabetes mellitus; Z80.3 Family history of malignant neoplasm of breast; Z80.0 Family history of malignant neoplasm of digestive organs
CPT/HCPCS: 1961; 36415; 59025; 80307; 81001; 82962; 85025; 85027; 86850; 86900; 86901; J0131; J0690; J1100; J1170; J1885; J2250; J2270; J2370; J2405; J2550; J2590; J2765; J3010; J3490; J7120